=== PATIENT | female | born 1990 ===

== ENCOUNTER 2021-03-24 09:27 | Outpatient (CLI) | payer OTHER, SELFPAY ==
[2021-03-25 11:01] LABS: Syphilis Serology (RPR) Negative (Negative)
[2021-03-25 11:48] LABS: HIV-1/2 Ag & Ab Screen Negative (Negative)
[2021-03-25 12:13] LABS: Hepatitis A Antibody IgM Negative (Negative); Hepatitis B Core Antibody Positive (Negative); Hepatitis B surface Ag Negative (Negative); Hepatitis C Ab w Rflx HCV PCR Negative (Negative)
[2021-03-28 13:08] LABS: HBc IgM Ab, S Negative (Negative)
== END 2021-03-24 09:28 | disposition home or self-care (01) ==
LOC: LBO 09:29
PROVIDERS: Visit Provider Obstetrics & Gynecology
DX: Z20.2 Contact with and (suspected) exposure to infections with a predominantly sexual mode of transmission (principal)
CPT/HCPCS: 36415; 86704; 86709; 86803; 87340; 87389; 86592; 86705

== ENCOUNTER 2021-03-24 11:42 | Outpatient (REF) | payer OTHER, SELFPAY ==
--- NOTE | 2021-03-24 09:30 | PAPFT_PTH ---
PATIENT: Osvaldo Serrano LOC: [facility] U#:[id number] AGE/SX: 30/F ROOM: RE03/24/[address]: Milagros Multani DO : 1990 BED: DIS: 03/24/2021 SPEC #: FC: RECD: 03/24/21 13:04 STATUS: LAURIE REQ #: [id number] AIMEE: 03/24/21 09:[address]: Milagros Multani DEPT: [facility] Cytology RECD BY: Katty Duval Tissues: 1 - CX/ENDOCX FOR PAP SMEARS Procedures: PAP THIN PREP/[facility] Screening Comments: [id number] (CHLAMYDIA/GC)
[2021-03-25 15:26] LABS: Chlamydia Result Negative (Negative); GC Result Negative (Negative)
== END 2021-03-24 11:43 | disposition home or self-care (01) ==
LOC: LBN 11:42
PROVIDERS: Visit Provider Obstetrics & Gynecology
DX: Z12.4 Encounter for screening for malignant neoplasm of cervix (principal); Z11.3 Encounter for screening for infections with a predominantly sexual mode of transmission
CPT/HCPCS: 87491; 87591; 88142